=== PATIENT | female | born 1950 | race Caucasian/White ===

== ENCOUNTER 2016-12-20 14:35 | Emergency (ER) | payer OTHER ==
[~2016-12-20] VITALS: Ht 170.2 cm; Wt 72.6 kg
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
--- NOTE | 2016-12-20 14:48 | NUR ---
DR BARNES AT BEDSIDE FOR EVAL.
[2016-12-20] MEDS ORDERED: METF500T4 PO (14:52)
[2016-12-20] MEDS ORDERED: TDAP [DIPH/PERTUSSIS/TET] 0.5 ML VIAL IM ONE ×2 (14:57→15:00)
--- NOTE | 2016-12-20 14:59 | NUR ---
RADIOLOGY AT BEDSIDE FOR CHEST XRAY.
--- NOTE | 2016-12-20 16:00 | NUR ---
wound care provided. Patient discharged to home in stable condition. Written and verbal after care instructions given. Patient verbalizes understanding of instruction.
[2016-12-20 16:01] VITALS: BP 142/84
== END 2016-12-20 16:01 | disposition home or self-care (01) ==
LOC: ER 14:36
DX: S20.219A Contusion of unspecified front wall of thorax, initial encounter (principal); S50.812A Abrasion of left forearm, initial encounter; S50.811A Abrasion of right forearm, initial encounter; E11.9 Type 2 diabetes mellitus without complications; V43.52XA Car driver injured in collision with other type car in traffic accident, initial encounter; Y92.488 Other paved roadways as the place of occurrence of the external cause; Y93.89 Activity, other specified; Y99.8 Other external cause status
CPT/HCPCS: 71010; 90471; 90715; 99283; A4606; Z7610